=== PATIENT | female | born 1960 | race Native Hawaiian/Other Pacific Islander ===

== ENCOUNTER 2017-05-30 10:34 | Outpatient (CLI) | payer OTHER | END 2017-05-30 12:00 | disposition home or self-care (01) | LOC: MAMMO 10:34 | DX: N63 Unspecified lump in breast (principal) | CPT/HCPCS: G0204-TC ==

== ENCOUNTER 2020-11-22 17:29 | Emergency (ER) | payer OTHER ==
[~2020-11-22] VITALS: Ht 165.1 cm; Wt 103.9 kg
[2020-11-22 17:42] VITALS: BP 161/106; TEMP 97.8
== END 2020-11-22 18:40 | disposition home or self-care (01) ==
LOC: ED 17:29
DX: R21 Rash and other nonspecific skin eruption (principal)
CPT/HCPCS: 99281